=== PATIENT | female | born 1940 | race Caucasian/White ===

== ENCOUNTER 2017-10-11 17:06 | Inpatient (IN) | payer MEDICARE, OTHER ==
[~2017-10-11] VITALS: Ht 165.1 cm; Wt 68.3 kg
[2017-10-11] MEDS ORDERED: TRAM50TA2 PO (17:38)
[2017-10-11] MEDS ORDERED: CYCL5TAB PO (17:38)
[2017-10-11] MEDS ORDERED: OXYC-128 PO (17:38)
--- NOTE | 2017-10-11 18:01 | NUR ---
PATIENT WAS SEEN BY DR GARCIA FOR C/O UPPER BACK, LOWER BACK AND CHEST PAINS AND SPASMS. PLACED ON A MONITOR. AWAITING TEST RESULTS.
[2017-10-11 18:19] LABS: ALANINE AMINOTRANSFERASE 22 U/L (14-59); ALKALINE PHOSPHATASE 60 U/L (50-136); ASPARTATE AMINOTRANSFERASE 15 U/L (15-37); BILIRUBIN,DIRECT 0.1 mg/dL (0.0-0.2); BILIRUBIN,TOTAL 0.5 mg/dL (0.2-1.0); CARBON DIOXIDE 27 mmol/L (21-32); CHLORIDE 100 mmol/L (98-107); GLUCOSE 93 mg/dL (74-106); POTASSIUM 4.2 mmol/L (3.5-5.1); TOTAL PROTEIN, SERUM 8.1 g/dL (6.4-8.2); UREA NITROGEN, BLOOD 26 mg/dL (7-18)
[2017-10-11 18:21] LABS: BASOPHILS # (AUTO) 0.1 K/uL (0.0-8.0); BASOPHILS % (AUTO) 0.9 % (0.0-2.0); EOSINOPHILS # (AUTO) 0.1 K/uL (0.0-0.7); EOSINOPHILS % (AUTO) 0.9 % (0.0-7.0); HEMATOCRIT 37.8 % (37-47); HEMOGLOBIN 12.5 G/DL (12.0-16.0); LYMPHOCYTES # (AUTO) 1.3 K/UL (0.8-4.8); LYMPHOCYTES % (AUTO) 20.9 % (20.5-51.5); MEAN CORPUSCULAR HEMOGLOBIN 30.1 UUG (27.0-31.0); MEAN CORPUSCULAR HGB CONC 33 g/dL (32.0-37.0); MEAN CORPUSCULAR VOLUME 90.8 FL (81.0-99.0); MONOCYTES # (AUTO) 0.5 K/UL (0.1-1.30); MONOCYTES % (AUTO) 8.4 % (0.0-11.0); NEUTROPHILS # (AUTO) 4.2 K/UL (1.8-8.9); NEUTROPHILS % (AUTO) 68.9 % (38.5-71.5); PLATELET COUNT (AUTO) 242 K/UL (150-450); RED BLOOD CELL COUNT(AUTO) 4.16 MIL/UL (4.2-5.4); WHITE BLOOD COUNT (AUTO) 6.2 K/UL (4.0-11.2)
--- NOTE | 2017-10-11 18:36 | NUR ---
DR CHARLES AT BEDSIDE AT THIS TIME
[2017-10-11] MEDS ORDERED: LORAZEPAM 2 MG/1 ML VIAL IV ONE (19:00)
[2017-10-11] MEDS ORDERED: DIAZEPAM 10 MG/2 ML DISP.SYRIN IV ONE (19:00)
[2017-10-11] MEDS ORDERED: IV NORMAL SALINE 1000 ML BAG IV ONE (19:00)
[2017-10-11] MEDS ORDERED: LORAZEPAM 2 MG/1 ML VIAL ONE (19:13)
[2017-10-11] MEDS ORDERED: IOHEXOL 350 100 ML INFUS..BTL ONE (19:14)
[2017-10-11] MEDS ORDERED: IV NORMAL SALINE 250 ML IV ONE (19:14)
[2017-10-11] MEDS ORDERED: NORMAL SALINE FLUSH 10 ML DISP.SYRIN ONE (19:14)
--- NOTE | 2017-10-11 19:21 | NUR ---
PATIENT AMBULATED TO BATHROOM WITH STEADY GAIT.
--- NOTE | 2017-10-11 19:22 | NUR ---
PATIENT OUT OF UNIT FOR CT SCAN VIA GURNY WITH NO DISTRESS NOTED
--- NOTE | 2017-10-11 21:50 | NUR ---
PAGE EPPIC PANEL REQUESTED BY DR CHARLES FOR ADMISSION. WAITING FOR DR BLACKWELL TO CALL BACK
--- NOTE | 2017-10-11 22:15 | NUR ---
DR CHARLES SPOKE WITH DR BLACKWELL
--- NOTE | 2017-10-11 22:22 | NUR ---
PLACED MEDICATIONS ON MEDICATION ENVELOPE. PATIENT HAS NORC 5-325MG (22 TABLETS),CYCLOBENZAPRINE 10MG (15 TABLETS),TRAMADOL 50MG (49 TABLETS) CO COUNTED WITH TIMBO Marcus RN
--- NOTE | 2017-10-11 22:43 | NUR ---
TRANSFERED TO 2ND FLOOR TELE VIA CHARISSE
[2017-10-11] MEDS ORDERED: HYDROMORPHONE 1 MG/1 ML DISP.SYRIN IV PRN (22:45)
[2017-10-11] MEDS ORDERED: ZOLPIDEM 5 MG TABLET PO PRN (22:45)
[2017-10-11] MEDS ORDERED: MAGNESIUM HYDROXIDE 30 ML LIQUID UDC PO PRN (22:45)
[2017-10-11] MEDS ORDERED: ACETAMINOPHEN 325 MG TABLET PO PRN (22:45)
[2017-10-11] MEDS ORDERED: OXYCODONE/APAP 5-325 MG TABLET PO PRN (22:45)
[2017-10-11] MEDS ORDERED: ONDANSETRON 4 MG/2 ML VIAL IV PRN (22:45)
--- NOTE | 2017-10-11 22:45 | NUR ---
PT WAS BROUGHT IN TO FLOOR VIA GURNEY. ADMITTED TO TELE UNDER DR. BLACKWELL. DX: CHESTPAIN. INITIATED ADMISSION ASSESSMENT. BELONGING LISTS REVIEWED. WILL CHECK ORDERS.
[2017-10-11 23:17] VITALS: BP 164/75
[2017-10-11] MEDS ORDERED: MAGNESIUM HYDROXIDE 30 ML LIQUID UDC ONE (23:39)
[2017-10-12 05:01] VITALS: BP 122/60
--- NOTE | 2017-10-12 05:56 | NUR ---
SR ON TELE. DILAUDID 1MG GIVEN FOR C/O GEN PAIN, NO FURTHER C/O PAIN AT THIS TIME. AMBULATED TO BATHROOM WITH MINIMAL ASSISTANCE. SAFETY MEASURES RENDERED.
[2017-10-12 06:48] LABS: IRON, SERUM 40 ug/dL (50-175)
[2017-10-12 06:52] LABS: ALANINE AMINOTRANSFERASE 20 U/L (14-59); ALKALINE PHOSPHATASE 49 U/L (50-136); ASPARTATE AMINOTRANSFERASE 11 U/L (15-37); BILIRUBIN,TOTAL 0.4 mg/dL (0.2-1.0); CARBON DIOXIDE 30 mmol/L (21-32); CHLORIDE 103 mmol/L (98-107); CHOLESTEROL 116 mg/dL (<200); GLUCOSE 108 mg/dL (74-106); HDL CHOLESTEROL 51 mg/dL (40-60); MAGNESIUM 2.1 mg/dL (1.8-2.4); PHOSPHOROUS 4.3 mg/dL (2.5-4.9); POTASSIUM 3.7 mmol/L (3.5-5.1); TRIGLYCERIDES 107 MG/DL (30-150); UREA NITROGEN, BLOOD 21 mg/dL (7-18)
[2017-10-12 07:38] LABS: BASOPHILS % (AUTO) 0.4 % (0.0-2.0); EOSINOPHILS # (AUTO) 0.1 K/uL (0.0-0.7); EOSINOPHILS % (AUTO) 1.4 % (0.0-7.0); HEMATOCRIT 29.1 % (31.2-41.9); HEMOGLOBIN 10.1 g/dL (10.9-14.3); LYMPHOCYTES # (AUTO) 1.2 K/uL (20.0-40.0); LYMPHOCYTES % (AUTO) 22.4 % (20.5-51.5); MEAN CORPUSCULAR HEMOGLOBIN 31.4 uug (24.7-32.8); MEAN CORPUSCULAR HGB CONC 35 g/dL (32.3-35.6); MEAN CORPUSCULAR VOLUME 90.6 fL (75.5-95.3); MONOCYTES # (AUTO) 0.6 K/uL (2.0-10.0); MONOCYTES % (AUTO) 11.3 % (0.0-11.0); NEUTROPHILS # (AUTO) 3.4 K/uL (1.8-8.9); NEUTROPHILS % (AUTO) 64.5 % (38.5-71.5); PLATELET COUNT (AUTO) 203 K/uL (179-408); RED BLOOD CELL COUNT(AUTO) 3.21 MIL/uL (3.63-4.92); WHITE BLOOD COUNT (AUTO) 5.3 K/uL (3.8-11.8)
--- NOTE | 2017-10-12 07:45 | NUR ---
patient received sleeping on bed, easily arousable. Alert and oriented x 3. Telemetry Sinus Rhythm. No complaints of physical discomfort at this time. Bed in low and locked position. call light within reach.
[2017-10-12] MEDS: PANTOPRAZOLE SODIUM 40 MG TABLET.DR PO SCH (09:10)
[2017-10-12 11:29] VITALS: BP 139/81
[2017-10-12] MEDS: HYDROMORPHONE 2 MG/1 ML DISP.SYRIN IV PRN ×2 (12:59→18:15)
--- NOTE | 2017-10-12 13:02 | NUR ---
patient laying down on bed watching tv complaining of gen pain 8/10 given dilaudid prn as ordered. vial accidentally discarded at bedside prior to administration, 1 mg administered via IV Carroll MCCRAY witnessed.
[2017-10-12 15:59] VITALS: BP 142/75
--- NOTE | 2017-10-12 16:08 | NUR ---
pt in bed awake, expressed no BM "in almost 2 weeks" and "MOM did not work". MD was made aware and evaluated pt. awaiting interventions.
[2017-10-12] MEDS ORDERED: BISACODYL 10 MG SUPP.RECT RC PRN (17:15)
[2017-10-12] MEDS ORDERED: FLEET ENEMA 133 ML BOTTLE RC ONE (19:45)
[2017-10-12] MEDS ORDERED: LACTULOSE 20 G/30 ML LIQUID UDC PO SCH (19:45)
[2017-10-12] MEDS: DOCUSATE SODIUM 100 MG CAPSULE PO SCH (20:44)
[2017-10-12] MEDS ORDERED: DOCUSATE SODIUM 250 MG CAPSULE PO SCH (21:00)
--- NOTE | 2017-10-12 22:00 | NUR ---
received to care, lying in bed, pleasant upon approach. continues to c/o constipation x 2 weeks. dulcolax suppository was given around 1800, with no results. fleets enema was given at 2044, with a small amount of soft stool, within 30 minutes of enema. currently lying in bed. call light in reach. no distress noted. will continue to monitor closely.
[2017-10-12] MEDS: IV NS 1000 ML 1,000 ML IV SCH (22:46)
--- NOTE | 2017-10-12 23:00 | NUR ---
normal saline started at 75 ml/ hr to right hand. iv appears patent. call light in reach.
--- NOTE | 2017-10-12 23:45 | NUR ---
appears to be asleep. no distress noted.
--- NOTE | 2017-10-13 05:42 | NUR ---
pt is now awake. reports still no bowel movement; PRN lactulose was given, at this time. pt also refused her AM protonix dose, stating she doesn't need it.
[2017-10-13] MEDS: PANTOPRAZOLE SODIUM 40 MG TABLET.DR PO SCH (05:51)
--- NOTE | 2017-10-13 08:48 | NUR ---
PT SLEEPING IN BED, AWAKENS TO NAME, DOES NOT WANT TO BE BOTHERED. ALLOWED TO DO ASSESSMENT THEN ASKED TO PLEASE CLOSE DOOR BECAUSE ITS NOSEY. CALL LIGHT IN REACH, WILL CONTINUE TO MONITOR
[2017-10-13] MEDS: IV NS 1000 ML 1,000 ML IV SCH ×2 (09:18→22:25)
[2017-10-13 11:28] VITALS: BP 157/86
[2017-10-13] MEDS: HYDROMORPHONE 2 MG/1 ML DISP.SYRIN IV PRN ×2 (14:46→20:24)
[2017-10-13 16:04] VITALS: BP 157/76
[2017-10-13] MEDS ORDERED: CYCLOBENZAPRINE HCL 10 MG TABLET PO PRN (19:00)
[2017-10-13 20:00] VITALS: BP 144/77
[2017-10-13] MEDS: METOPROLOL TARTRATE 25 MG TABLET PO SCH (20:21)
[2017-10-13] MEDS: DOCUSATE SODIUM 100 MG CAPSULE PO SCH (20:21)
[2017-10-14 05:01] VITALS: BP 135/58
--- NOTE | 2017-10-14 05:59 | NUR ---
PT SLEPT WELL THROUGH THE NIGHT AND WAS EASILY AWOKEN, PT COMPLAINED OF PAIN, MEDICATION WAS GIVEN AND WAS EFFECTIVE, PT DENIED HAVING ANY DIFFICULTY BREATHING. PT REFUSED TO HAVE HER IV FLUID RUN DURING THE NIGHT WHILE SHE SLEEPS. ALL NEEDS MET, SAFETY MEASURES ARE IN PLACE, CALL LIGHT WITHIN REACH, BED ALARM IS ON.
[2017-10-14] MEDS: PANTOPRAZOLE SODIUM 40 MG TABLET.DR PO SCH (06:18)
[2017-10-14 06:42] LABS: BASOPHILS % (AUTO) 0.6 % (0.0-2.0); EOSINOPHILS # (AUTO) 0.1 K/uL (0.0-0.7); EOSINOPHILS % (AUTO) 2.4 % (0.0-7.0); HEMATOCRIT 29.7 % (37-47); HEMOGLOBIN 10.1 G/DL (12.0-16.0); LYMPHOCYTES # (AUTO) 1.3 K/UL (0.8-4.8); MEAN CORPUSCULAR HEMOGLOBIN 30.7 UUG (27.0-31.0); MEAN CORPUSCULAR HGB CONC 34 g/dL (32.0-37.0); MEAN CORPUSCULAR VOLUME 90.7 FL (81.0-99.0); MONOCYTES # (AUTO) 0.4 K/UL (0.1-1.30); MONOCYTES % (AUTO) 10.8 % (0.0-11.0); NEUTROPHILS # (AUTO) 1.5 K/UL (1.8-8.9); NEUTROPHILS % (AUTO) 47.2 % (38.5-71.5); PLATELET COUNT (AUTO) 176 K/UL (150-450); RED BLOOD CELL COUNT(AUTO) 3.27 MIL/UL (4.2-5.4); WHITE BLOOD COUNT (AUTO) 3.4 K/UL (4.0-11.2)
[2017-10-14 06:58] LABS: CARBON DIOXIDE 24 mmol/L (21-32); CHLORIDE 105 mmol/L (98-107); CREATININE 0.8 mg/dL (0.6-1.3); GLUCOSE 78 mg/dL (74-106); MAGNESIUM 1.9 mg/dL (1.8-2.4); PHOSPHOROUS 3.5 mg/dL (2.5-4.9); POTASSIUM 3.5 mmol/L (3.5-5.1); UREA NITROGEN, BLOOD 14 mg/dL (7-18)
[2017-10-14] MEDS: METOPROLOL TARTRATE 25 MG TABLET PO SCH (08:27)
--- NOTE | 2017-10-14 09:27 | NUR ---
PT STILL HAS NOT HAD BM, OFFERED LACTULOSE ORDERED BUT PT REFUSED, WILL CONTINUE TO MONITOR
[2017-10-14] MEDS: IV NS 1000 ML 1,000 ML IV SCH (11:18)
[2017-10-14] MEDS ORDERED: PREGABALIN 100 MG CAPSULE PO ONE (11:37)
[2017-10-14] MEDS ORDERED: CELECOXIB 100 MG CAPSULE PO SCH (11:45)
[2017-10-14 12:08] VITALS: BP 132/66
[2017-10-14] MEDS ORDERED: CELE100C PO (12:30)
[2017-10-14] MEDS ORDERED: MAGN296S PO (12:30)
[2017-10-14] MEDS ORDERED: PREG100C PO (12:30)
[2017-10-14] MEDS ORDERED: FAMO-132 PO (12:30)
[2017-10-14] MEDS ORDERED: POLY17PO4 PO (12:30)
[2017-10-14] MEDS ORDERED: METO25TA6 PO (12:30)
--- NOTE | 2017-10-14 13:30 | NUR ---
DISCHARGE NOTED, PROTOCOL FOLLOWED. IV REMOVED WITH NO REDNESS OR IRRITATION NOTED. EDUCATION PROVIDED, PT VERBALIZED UNDERSTANDING, ALL BELONGINGS ACCOUNTED FOR AND SENT WITH PATIENT, PATIENT REQUESTED [facility], [facility] CALLED AND PT TAKEN DOWN IN WHEELCHAIR TO LOBBY, LEFT IN [facility].
== END 2017-10-14 13:15 | disposition home or self-care (01) | DRG 206 ==
LOC: ER 17:08 → TELE 22:33 → MED 10-12 15:38
PROVIDERS: ADMIT Internal Medicine; ATTEND Internal Medicine
DX: M94.0 Chondrocostal junction syndrome [Tietze] (principal); C90.00 Multiple myeloma not having achieved remission; G62.9 Polyneuropathy, unspecified; E83.52 Hypercalcemia; D64.9 Anemia, unspecified; I11.9 Hypertensive heart disease without heart failure; Z90.710 Acquired absence of both cervix and uterus; Z82.49 Family history of ischemic heart disease and other diseases of the circulatory system; Z80.0 Family history of malignant neoplasm of digestive organs; E78.5 Hyperlipidemia, unspecified; K56.41 Fecal impaction; M85.80 Other specified disorders of bone density and structure, unspecified site; M51.34 Other intervertebral disc degeneration, thoracic region; F39 Unspecified mood [affective] disorder
CPT/HCPCS: 36415; 70030-TC; 71010; 83550; 83735; 84100; 84443; 85025; 85730; 86140; 93005; 93307; A4663; J1170; J2060; J3490; J7030; J7050; Q9967

== ENCOUNTER 2017-10-17 20:21 | Emergency (ER) | payer MEDICARE, OTHER ==
[~2017-10-17] VITALS: Ht 165.1 cm; Wt 63.0 kg
[~2017-10-17 20:21] MED LIST: CELE100C PO; FAMO-132 PO; MAGN296S PO; METO25TA6 PO; OXYC-128 PO; POLY17PO4 PO; PREG100C PO
--- NOTE | 2017-10-17 20:45 | NUR ---
DR. GOMES AT BEDSIDE FOR MSE.
[2017-10-17] MEDS ORDERED: IV NORMAL SALINE 1000 ML BAG IV ONE (21:00)
[2017-10-17] MEDS ORDERED: ONDANSETRON 4 MG/2 ML VIAL IV ONE (21:00)
[2017-10-17] MEDS ORDERED: HYDROMORPHONE 1 MG/1 ML DISP.SYRIN IV ONE (21:00)
[2017-10-17] MEDS ORDERED: LORAZEPAM 2 MG/1 ML VIAL IV ONE (21:00)
[2017-10-17 21:36] LABS: BASOPHILS % (AUTO) 0.7 % (0.0-2.0); EOSINOPHILS # (AUTO) 0.1 K/uL (0.0-0.7); EOSINOPHILS % (AUTO) 0.9 % (0.0-7.0); HEMATOCRIT 32.2 % (37-47); HEMOGLOBIN 11.2 G/DL (12.0-16.0); LYMPHOCYTES # (AUTO) 0.8 K/UL (0.8-4.8); LYMPHOCYTES % (AUTO) 13.2 % (20.5-51.5); MEAN CORPUSCULAR HEMOGLOBIN 30.9 UUG (27.0-31.0); MEAN CORPUSCULAR HGB CONC 35 g/dL (32.0-37.0); MEAN CORPUSCULAR VOLUME 89.1 FL (81.0-99.0); MONOCYTES # (AUTO) 0.4 K/UL (0.1-1.30); MONOCYTES % (AUTO) 5.8 % (0.0-11.0); NEUTROPHILS # (AUTO) 5.1 K/UL (1.8-8.9); NEUTROPHILS % (AUTO) 79.4 % (38.5-71.5); PLATELET COUNT (AUTO) 235 K/UL (150-450); RED BLOOD CELL COUNT(AUTO) 3.61 MIL/UL (4.2-5.4); WHITE BLOOD COUNT (AUTO) 6.4 K/UL (4.0-11.2)
[2017-10-17 21:47] LABS: CARBON DIOXIDE 25 mmol/L (21-32); CHLORIDE 99 mmol/L (98-107); GLUCOSE 120 mg/dL (74-106); UREA NITROGEN, BLOOD 18 mg/dL (7-18)
[2017-10-17] MEDS ORDERED: HYDROMORPHONE 2 MG/1 ML DISP.SYRIN ONE (21:49)
[2017-10-17] MEDS ORDERED: LORAZEPAM 2 MG/1 ML VIAL ONE (21:49)
[2017-10-17] MEDS ORDERED: ONDANSETRON 4 MG/2 ML VIAL ONE (21:49)
[2017-10-17 21:53] LABS: ALANINE AMINOTRANSFERASE 19 U/L (14-59); ALKALINE PHOSPHATASE 66 U/L (50-136); ASPARTATE AMINOTRANSFERASE 13 U/L (15-37); BILIRUBIN,DIRECT 0.1 mg/dL (0.0-0.2); BILIRUBIN,TOTAL 0.4 mg/dL (0.2-1.0); LIPASE 176 U/L (73-393); TOTAL PROTEIN, SERUM 7.5 g/dL (6.4-8.2)
--- NOTE | 2017-10-17 22:11 | NUR ---
Call placed to [facility], Dr. Lui will be paged.
[2017-10-17] MEDS ORDERED: PREG100C GT (22:27)
[2017-10-17] MEDS ORDERED: FAMO-132 PO (22:27)
[2017-10-17] MEDS ORDERED: MAGN296S PO (22:27)
[2017-10-17] MEDS ORDERED: TRAM50TA2 PO (22:27)
[2017-10-17] MEDS ORDERED: METO25TA6 PO (22:27)
[2017-10-17] MEDS ORDERED: POLY17PO4 PO (22:27)
[2017-10-17] MEDS ORDERED: CELE100C PO (22:27)
--- NOTE | 2017-10-17 22:41 | NUR ---
DR. LYN LOPEZ.
--- NOTE | 2017-10-17 22:47 | NUR ---
DR. NICHOLSON RETURNED PHONE CALL AND SPOKE WITH DR. GOMES REGARDING PATIENT.
--- NOTE | 2017-10-17 22:58 | NUR ---
Patient discharged to home in stable conditon. Written and verbal after care instructions given. Patient verbalizes understanding of instructions. PATIENT LEFT WITH STABLE GAIT. [facility] CALLED ON PATIENT BEHALF.
[2017-10-17 22:59] VITALS: BP 142/88
--- NOTE | 2017-10-18 00:03 | NUR ---
PATIENT SITTING OUTSIDE ER. [employer] CALLED AGAIN, DISPATCHER WILL SEND NEW CAB.
--- NOTE | 2017-10-18 00:18 | NUR ---
PATIENT PICKED UP BY [facility] AT THIS TIME.
== END 2017-10-17 23:00 | disposition home or self-care (01) ==
LOC: ER 20:22
DX: C90.00 Multiple myeloma not having achieved remission (principal); G89.29 Other chronic pain; M54.9 Dorsalgia, unspecified; M48.00 Spinal stenosis, site unspecified; M62.830 Muscle spasm of back
CPT/HCPCS: 36415; 71010; 80048; 80076; 83690; 85025; 93005; 96361; 96374; 96375; 99285; A4663; J1170; J2060; J2405; J7030

== ENCOUNTER 2017-10-22 13:13 | Inpatient (IN) | payer MEDICARE, OTHER ==
[~2017-10-22] VITALS: Ht 165.1 cm; Wt 68.0 kg
[~2017-10-22 13:13] MED LIST changes: -OXYC-128 PO; +PREG100C GT; -PREG100C PO; +TRAM50TA2 PO
[2017-10-22] MEDS ORDERED: IV NORMAL SALINE 500 ML IV ONE (14:45)
[2017-10-22 15:31] LABS: BASOPHILS # (AUTO) 0.1 K/uL (0.0-8.0); BASOPHILS % (AUTO) 1.7 % (0.0-2.0); EOSINOPHILS % (AUTO) 0.1 % (0.0-7.0); HEMATOCRIT 33.9 % (37-47); HEMOGLOBIN 11.4 G/DL (12.0-16.0); LYMPHOCYTES # (AUTO) 0.9 K/UL (0.8-4.8); LYMPHOCYTES % (AUTO) 12.2 % (20.5-51.5); MEAN CORPUSCULAR HGB CONC 34 g/dL (32.0-37.0); MONOCYTES # (AUTO) 0.5 K/UL (0.1-1.30); NEUTROPHILS # (AUTO) 5.7 K/UL (1.8-8.9); PLATELET COUNT (AUTO) 264 K/UL (150-450); RED BLOOD CELL COUNT(AUTO) 3.81 MIL/UL (4.2-5.4); WHITE BLOOD COUNT (AUTO) 7.2 K/UL (4.0-11.2)
[2017-10-22 15:39] LABS: *BLOOD, URINE NEGATIVE (NEGATIVE); *CLARITY,URINE CLOUDY (CLEAR); *COLOR,URINE YELLOW (YELLOW); *KETONES,URINE 1+ (NEGATIVE); *PROTEIN,URINE TRACE (NEGATIVE); CARBON DIOXIDE 24 mmol/L (21-32); CHLORIDE 99 mmol/L (98-107); CREATININE 0.9 mg/dL (0.6-1.3); GLUCOSE 96 mg/dL (74-106); LEUKOCYTE ESTERASE ,URINE TRACE (NEGATIVE); NITRITE, URINE NEGATIVE (NEGATIVE); PH,URINE 8.5 (5.0-8.0); POTASSIUM 3.8 mmol/L (3.5-5.1); UGLUCOSE NEGATIVE (NEGATIVE); UREA NITROGEN, BLOOD 14 mg/dL (7-18)
[2017-10-22 15:48] LABS: *BILIRUBIN,URIN NEGATIVE (NEGATIVE)
[2017-10-22 15:51] LABS: SQUAMOUS EPITHELIAL CELL,UR MODERATE /HPF (NONE SEEN); URINE AMORPHOUS PHOSPHATES MANY /HPF
[2017-10-22 15:56] LABS: ALANINE AMINOTRANSFERASE 20 U/L (14-59); ALKALINE PHOSPHATASE 70 U/L (50-136); ASPARTATE AMINOTRANSFERASE 23 U/L (15-37); BILIRUBIN,TOTAL 0.8 mg/dL (0.2-1.0); CREATINE KINASE, TOTAL 152 U/L (26-192); TOTAL PROTEIN, SERUM 8.4 g/dL (6.4-8.2)
[2017-10-22] MEDS ORDERED: METOPROLOL TARTRATE 25 MG TABLET PO ONE (17:46)
--- NOTE | 2017-10-22 17:48 | NUR ---
transfered to 2nd floor med surg
[2017-10-22] MEDS ORDERED: METOPROLOL TARTRATE 50 MG TABLET ONE (17:55)
[2017-10-22] MEDS ORDERED: Z GUARD REMEDY PASTE 57 GM TUBE TOP PRN (18:00)
[2017-10-22] MEDS ORDERED: ZOLPIDEM 5 MG TABLET PO PRN (18:00)
[2017-10-22] MEDS ORDERED: ACETAMINOPHEN 325 MG TABLET PO PRN (18:00)
[2017-10-22] MEDS ORDERED: HYDROCODONE/APAP 5-325MG TABLET PO PRN (18:00)
[2017-10-22] MEDS ORDERED: ONDANSETRON 4 MG/2 ML VIAL IV PRN (18:00)
[2017-10-22] MEDS ORDERED: FLEET ENEMA 133 ML BOTTLE RC PRN (18:00)
--- NOTE | 2017-10-22 18:00 | NUR ---
Nurse admission Note: Patient was received from emergency room, was admitted in September with abdominal and back spasms, was taking pain medications, now admitted again with abdominal pain and back pain, refused laxatives in ER, wanted to be admitted, will need few enemas tonight. abdomen is soft, distended, but painful to palpate.
[2017-10-22 18:13] VITALS: BP 142/68
[2017-10-22 19:00] VITALS: BP 161/74
[2017-10-22] MEDS: DOCUSATE SODIUM 250 MG CAPSULE PO SCH (20:20)
[2017-10-22] MEDS: CLONIDINE HCL 0.1 MG TABLET PO PRN (20:20)
[2017-10-22 21:30] VITALS: BP 146/73
--- NOTE | 2017-10-22 21:30 | NUR ---
PT CALLED RN TO INFORM SHE HAD A BOWEL MOVEMENT. STOOL IS MEDIUM, SOFT, BROWN, FORMED, NO BLOODY STOOL NOTED. PT SHOWED SIGNS OF RELIEF FROM CONSTIPATION. WILL CONTINUE TO MONITOR.
[2017-10-23 04:00] VITALS: BP 162/77
--- NOTE | 2017-10-23 04:50 | NUR ---
CLARIFIED WITH PATIENT REGARDING CODE STATUS AND WISHES. PT WISHES TO BE ON A "DO NOT RESUSCITATE, DO NOT INTUBATE" CODE STATUS. PT STATES SHE DOES NOT HAVE ADVANCE DIRECTIVES. WILL ENDORSE TO DAY SHIFT RN AND NOTIFY MD. [employer] NOTIFIED.
--- NOTE | 2017-10-23 05:00 | NUR ---
Pt noted to have elevated BP 162/77 HR 90. Pt no c/o of headache, chest pain or discomfort. Administered PRN med as ordered. Will reassess and monitor.
[2017-10-23] MEDS: CLONIDINE HCL 0.1 MG TABLET PO PRN ×2 (05:09→16:24)
--- NOTE | 2017-10-23 05:54 | NUR ---
Pt slept well, in no acute distress. Pt stated no c/o of pain or discomfort at this time. No SOB, nausea, vomiting, headache. VS stable, pt remains afebrile. Safety measures in place, call light within reach. Will continue to monitor.
[2017-10-23 07:21] LABS: CARBON DIOXIDE 22 mmol/L (21-32); CHLORIDE 103 mmol/L (98-107); CREATININE 0.7 mg/dL (0.6-1.3); GLUCOSE 89 mg/dL (74-106); MAGNESIUM 2.1 mg/dL (1.8-2.4); PHOSPHOROUS 4.2 mg/dL (2.5-4.9); POTASSIUM 3.4 mmol/L (3.5-5.1); UREA NITROGEN, BLOOD 15 mg/dL (7-18)
[2017-10-23 07:23] LABS: BASOPHILS % (AUTO) 0.2 % (0.0-2.0); EOSINOPHILS % (AUTO) 0.3 % (0.0-7.0); HEMATOCRIT 28.7 % (31.2-41.9); HEMOGLOBIN 9.9 g/dL (10.9-14.3); LYMPHOCYTES # (AUTO) 0.9 K/uL (20.0-40.0); LYMPHOCYTES % (AUTO) 12.7 % (20.5-51.5); MEAN CORPUSCULAR HGB CONC 34 g/dL (32.3-35.6); MEAN CORPUSCULAR VOLUME 90.2 fL (75.5-95.3); MONOCYTES # (AUTO) 0.6 K/uL (2.0-10.0); MONOCYTES % (AUTO) 8.1 % (0.0-11.0); NEUTROPHILS # (AUTO) 5.6 K/uL (1.8-8.9); NEUTROPHILS % (AUTO) 78.7 % (38.5-71.5); PLATELET COUNT (AUTO) 214 K/uL (179-408); RED BLOOD CELL COUNT(AUTO) 3.18 MIL/uL (3.63-4.92); WHITE BLOOD COUNT (AUTO) 7.1 K/uL (3.8-11.8)
[2017-10-23 11:32] VITALS: BP 150/72
[2017-10-23] MEDS ORDERED: POTASSIUM CHLORIDE 20 MEQ TAB.PRT.SR PO ONE (14:00)
[2017-10-23] MEDS: MAGNESIUM HYDROXIDE 30 ML LIQUID UDC PO PRN (14:32)
[2017-10-23 16:05] VITALS: BP 162/81
[2017-10-23 20:00] VITALS: BP 139/59
[2017-10-23] MEDS: DOCUSATE SODIUM 250 MG CAPSULE PO SCH (20:53)
[2017-10-24 05:08] VITALS: BP 145/77
[2017-10-24] MEDS: MAGNESIUM HYDROXIDE 30 ML LIQUID UDC PO PRN (05:39)
[2017-10-24 11:01] VITALS: BP 145/74
[2017-10-24] MEDS ORDERED: MAGN400O6 PO (12:52)
[2017-10-24] MEDS ORDERED: DOCU250C14 PO (12:52)
--- NOTE | 2017-10-24 14:00 | NUR ---
Pt is calm, cooperative, D/C with all belongings, valuables, skin intact, prescriptions, exitcare packet, D/C paperwork. Pt was educated about medication and vaccinations. Pt had already had the flu vaccine in August 2017.
== END 2017-10-24 14:00 | disposition home or self-care (01) | DRG 392 ==
LOC: ER 13:13 → MED 17:40
PROVIDERS: ADMIT Internal Medicine; ATTEND Internal Medicine
DX: K59.00 Constipation, unspecified (principal); C90.00 Multiple myeloma not having achieved remission; G62.9 Polyneuropathy, unspecified; D63.8 Anemia in other chronic diseases classified elsewhere; E78.5 Hyperlipidemia, unspecified; G89.29 Other chronic pain; I10 Essential (primary) hypertension; Z66 Do not resuscitate
CPT/HCPCS: 36415; 70030-TC; 83735; 84100; 85025; 85610; 93005; A4663; J7040